=== PATIENT | female | born 1995 | race African-American/Black ===

== ENCOUNTER 2023-01-03 11:39 | Emergency (ER) | payer OTHER ==
[~2023-01-03] VITALS: Ht 167.6 cm; Wt 60.0 kg
[2023-01-03] MEDS ORDERED: cefTRIAXone SOD 1,000 MG VL IM ONE (12:30)
[2023-01-03] MEDS ORDERED: ACETAMINOPHEN 500 MG TAB PO ONE (12:30)
[2023-01-03] MEDS ORDERED: ONDANSETRON ODT 4 MG TAB PO ONE (13:00)
[2023-01-03] MEDS ORDERED: IBUP600T28 PO (13:50)
[2023-01-03] MEDS ORDERED: BACDST PO (13:50)
[2023-01-03 13:59] VITALS: BP 107/70
== END 2023-01-03 14:01 | disposition home or self-care (01) ==
LOC: ER 11:39
DX: L03.116 Cellulitis of left lower limb (principal); J45.909 Unspecified asthma, uncomplicated; Z79.1 Long term (current) use of non-steroidal anti-inflammatories (NSAID); Z79.2 Long term (current) use of antibiotics
CPT/HCPCS: 96372; 99283; J0696; Q0162